=== PATIENT | male | born 1995 | race Caucasian/White ===

== ENCOUNTER 2025-04-14 21:01 | Emergency (ER) | payer SELFPAY ==
[~2025-04-14] VITALS: Ht 170.2 cm; Wt 95.0 kg
[2025-04-14 21:08] VITALS: O2SAT 96
[2025-04-14] MEDS ORDERED: ONDANSETRON HCL 4MG/2ML INJ IV ONE (22:30)
[2025-04-14 23:03] LABS: BASOPHILS % 0.4 % (0.0-2.0); EOSINOPHILS % 0.4 % (0.0-5.0); HEMATOCRIT. 43.7 % (42.0-52.0); HEMOGLOBIN. 15.1 g/dL (14.0-18.0); LYMPHOCYTES % 13.0 % (20.0-50.0); MEAN PLATELET VOLUME 8.4 fl (7.4-10.4); MONOCYTES % 4.6 % (2.0-8.0); NEUTROPHILS % 81.6 % (40.0-76.0); PLATELET 188 x1000/uL (130-400); RED BLOOD CELL COUNT 5.08 mill/uL (4.7-6.1); RED CELL DISTRIBUTION WIDTH 14.0 % (11.6-14.6)
[2025-04-14 23:13] LABS: CREATININE 0.9 mg/dL (0.6-1.3)
[2025-04-14 23:14] LABS: UREA NITROGEN BLOOD 11 mg/dL (9-23)
[2025-04-14 23:15] LABS: ASPARTATE AMINOTRANSFERASE 131 IU/L (<34)
[2025-04-14 23:16] LABS: BILIRUBIN DIRECT 0.1 mg/dL (<=3.0); BILIRUBIN TOTAL 0.5 mg/dL (0.1-1.0); PROTEIN TOTAL 7.4 g/dL (6.0-8.3)
[2025-04-15] MEDS: ONDANSETRON HCL 4MG/2ML INJ IV NR (04:22)
[2025-04-15 05:10] VITALS: BP 121/76; PULSE 86; RESP 16; TEMP 36.7; O2SAT 97
== END 2025-04-15 05:12 | disposition home or self-care (01) ==
LOC: ER 21:01
DX: T51.0X1A Toxic effect of ethanol, accidental (unintentional), initial encounter (principal); R51.9 Headache, unspecified; X58.XXXA Exposure to other specified factors, initial encounter; Y90.8 Blood alcohol level of 240 mg/100 ml or more
CPT/HCPCS: 80076; 80048; 80320; 83690; 85025; 36415; 70450; 99285; 96374; J2405; G0480